=== PATIENT | female | born 1980 | race Caucasian/White ===

== ENCOUNTER 2016-12-09 08:56 | Emergency (ER) | payer OTHER ==
[~2016-12-09] VITALS: Ht 175.3 cm; Wt 63.6 kg
[~2016-12-09 08:56] MED LIST: PRENATAL VITAMI1 TA5 PO
[2016-12-09 08:59] VITALS: BP 121/63; PULSE 84; TEMP 98.6
[2016-12-09] MEDS ORDERED: SYNTHROID0.125 MG/T PO (09:02)
== END 2016-12-09 10:03 | disposition home or self-care (01) ==
LOC: COL.ER 08:56
DX: O26.892 Other specified pregnancy related conditions, second trimester (principal); N89.8 Other specified noninflammatory disorders of vagina; Z3A.20 20 weeks gestation of pregnancy